=== PATIENT | female | born 1935 | race Caucasian/White ===

== ENCOUNTER 2019-10-26 03:17 | Emergency (ER) | payer OTHER ==
[~2019-10-26] VITALS: Ht 162.6 cm; Wt 64.4 kg
[~2019-10-26 03:17] MED LIST: ALBUTEROL INH; APAP500 PO; ASPIR 8181 MG PO; ASPIRIN325 PO; AVELOX ABC PAC400 MG; CARVEDILOL3.125 MG PO; CARVEDILOL6.25 MG PO; CIPRO500 MG PO; COUMADIN 4 MG TA4 M1 PO; COUMADIN 5 MG TA5 M1 PO; DILTIAZEM ER240 M1 PO; FIBER TABS625 MG PO; GABAPENTIN 100100 MG PO; GLUCOTROL XL5 MG PO; GLUCOTROL5 MG PO; HYDROCODONE-AP1 EAC6 PO; HYTRIN 5 M5 MG/1 CA1 PO; IBUPROFEN 800800 M1 PO; K-DUR 20 MEQ T20 MEQ PO; KEFLEX500 MG PO; LASIX 40 MG TAB40 M2 PO; LEVAQUIN 500 M500 M2 PO; LEVOTHROID50 MCG PO; LEVOTHYROXINE0.05 MG PO; LIPITOR80 MG PO; LISINOPRIL20 MG PO; LISINOPRIL40 MG PO; LISINOPRIL5 MG PO; MUCINEX600 MG OR; MULTIVITAMINS PO; NYSTATIN 100,0015 G1; PLAVIX 75 MG TA75 M1 PO; PREDNISONE 10 M10 M1; SENNA PO; TYLENOL EX-STR500 M2 PO; WELLBUTRIN SR150 MG PO; ZANTAC 150MG T150 M1 PO
[2019-10-26 03:43] VITALS: BP 113/55
== END 2019-10-26 03:50 | disposition home or self-care (01) ==
LOC: ER 03:17
DX: S01.01XA Laceration without foreign body of scalp, initial encounter (principal); I11.0 Hypertensive heart disease with heart failure; I50.9 Heart failure, unspecified; E11.9 Type 2 diabetes mellitus without complications; E03.9 Hypothyroidism, unspecified; M19.90 Unspecified osteoarthritis, unspecified site; I48.91 Unspecified atrial fibrillation; Z88.8 Allergy status to other drugs, medicaments and biological substances; Z87.891 Personal history of nicotine dependence; W18.39XA Other fall on same level, initial encounter; Y93.01 Activity, walking, marching and hiking; Y92.002 Bathroom of unspecified non-institutional (private) residence as the place of occurrence of the external cause; Y99.8 Other external cause status